=== PATIENT | male | born 1955 | race Two or more races ===

== ENCOUNTER 2020-04-07 14:58 | Inpatient (IN) | payer MEDICARE, OTHER ==
[~2020-04-07] VITALS: Ht 170.2 cm; Wt 109.3 kg
--- NOTE | 2020-04-07 15:20 | NUR ---
PT BIB FAMILY, PT HERE FOR BLE EDEMA. STATES, WAS AT DR STEAWRT AND WAS TOLD TO GO TO ED. PT DENIES CHEST PAIN AND SOB. 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 PLACED ON MONITOR. VSS. AWAITING MD MARIE.
[2020-04-07] MEDS ORDERED: METO-358 PO (15:26)
[2020-04-07] MEDS ORDERED: SPIR25TA6 PO (15:26)
[2020-04-07] MEDS ORDERED: SACU1TAB7 PO (15:26)
[2020-04-07] MEDS ORDERED: RIVA15TA PO (15:26)
[2020-04-07] MEDS ORDERED: AMIO200T4 PO (15:26)
[2020-04-07] MEDS ORDERED: CARB1TAB21 PO (15:26)
[2020-04-07] MEDS ORDERED: FURO40TA5 PO (15:26)
[2020-04-07] MEDS ORDERED: ATOR80TA PO (15:26)
[2020-04-07] MEDS ORDERED: TRAZ-252 PO (15:26)
--- NOTE | 2020-04-07 15:43 | NUR ---
DR GRANT AT BEDSIDE FOR EVAL.
--- NOTE | 2020-04-07 16:12 | NUR ---
IV LINE STARTERD BLOOD DRAWN AND SENT TO LAB.
--- NOTE | 2020-04-07 16:19 | NUR ---
U/S TECH AT BEDSIDE FOR BLE DUPLEX ULTRASOUND
[2020-04-07 16:36] LABS: BASOPHILS % (AUTO) 0.9 % (0.0-2.0); HEMATOCRIT 34 % (39-51); HEMOGLOBIN 11.5 g/dL (13.5-17.5); LYMPHOCYTES # (AUTO) 1.2 /CMM (0.8-4.8); LYMPHOCYTES % (AUTO) 22.8 % (20.0-44.0); MEAN CORPUSCULAR HGB CONC 34 g/dl (31.0-36.0); MEAN CORPUSCULAR VOLUME 96 fL (80-96); MONOCYTES # (AUTO) 0.6 /CMM (0.1-1.30); MONOCYTES % (AUTO) 12.1 % (2.0-12.0); NEUTROPHILS # (AUTO) 3.3 /CMM (1.8-8.9); NEUTROPHILS % (AUTO) 63.2 % (43.0-81.0); PLATELET COUNT (AUTO) 130 /CMM (150-450); RED BLOOD CELL COUNT(AUTO) 3.59 MIL/uL (4.5-6.0); WHITE BLOOD COUNT (AUTO) 5.2 K/uL (4.3-11.0)
[2020-04-07 16:58] LABS: CALCIUM, SERUM 8.9 mg/dL (8.5-10.1); CARBON DIOXIDE 27 mmol/L (21-32); CHLORIDE 105 mmol/L (98-107); CREATININE 1.8 mg/dL (0.6-1.3); GLUCOSE 91 mg/dL (74-106); POTASSIUM 3.9 mmol/L (3.5-5.1); SODIUM SERUM 140 mmol/L (136-145); UREA NITROGEN, BLOOD 24 mg/dL (7-18)
[2020-04-07 17:06] LABS: ALANINE AMINOTRANSFERASE 13 U/L (12-78); ALBUMIN 2.9 g/dL (3.4-5.0); ALKALINE PHOSPHATASE 73 U/L (46-116); ASPARTATE AMINOTRANSFERASE 25 U/L (15-37); B-TYPE NATRIURETIC PEPTIDE 1127 PG/ML (0-125); BILIRUBIN,DIRECT 0.3 mg/dL (0.0-0.2); BILIRUBIN,TOTAL 0.9 mg/dL (0.2-1.0)
--- NOTE | 2020-04-07 17:39 | NUR ---
DR SALTER PAGED THRU HIS CELL
--- NOTE | 2020-04-07 18:26 | NUR ---
CALLED DR SALTER. TO SPEAKING NOW
[2020-04-07] MEDS ORDERED: FUROSEMIDE 40 MG/4 ML VIAL IV ONE (18:30)
[2020-04-07] MEDS ORDERED: ASPIRIN 81 MG TAB.CHEW PO ONE (19:00)
--- NOTE | 2020-04-07 19:31 | NUR ---
CALL FROM LAB, RAPID COVID NEGATIVE.
--- NOTE | 2020-04-07 19:44 | NUR ---
TELE 103
--- NOTE | 2020-04-07 19:56 | NUR ---
URINE COLLECTED AND SENT TO THE LAB.
--- NOTE | 2020-04-07 20:06 | NUR ---
REPORT CALLED TO HEAD CORRECTION OFFICERHANANE RUBIO. WILL TRANSPORT PT VIA ACLS PROTOCOL.
--- NOTE | 2020-04-07 20:10 | NUR ---
RN OPENING NOTE PT ARRIVED TO THE FLOOR VIA GURNEY, PT IS A/A/O X4, ON ROOM AIR HAS UNLABORED BREATHING, DENIES SOB . SAFETY MEASURE IN PLACE BED AT LOWEST POSITION,LOCKED,CALL LIGHT IN REACH,SIDE RAILS UPX2, HOB ELEVATED.
--- NOTE | 2020-04-07 20:17 | NUR ---
PATIENT TAKEN UP TO ASSIGNED ROOM FOR AUDRA.
[2020-04-07 20:24] VITALS: BP 135/63
[2020-04-07] MEDS ORDERED: ATORVASTATIN 10 MG TABLET PO SCH (23:00)
[2020-04-07] MEDS ORDERED: TRAZODONE 50 MG TABLET PO SCH (23:00)
[2020-04-07 23:34] LABS: ABG BASE EXCESS 0.1 mmol/L; ABG OXYGEN SATURATION 93.7 % (92.0-98.5); ABG PCO2 35.7 mmHg (35.0-45.0); ABG PH 7.443 (7.350-7.450); ABG PO2 67.2 mmHg (75.0-100.0); AaDO2 39.8 mmHg; COHb 0.2 % (0.5-1.5); MetHb 0.1 % (0.0-1.5); O2Hb 93.4 % (94.0-97.0); SITE, ABG Right Radial; VENT MODE, BG room air
[2020-04-07] MEDS: TAMSULOSIN 0.4 MG CAP.SR.24H PO SCH (23:43)
[2020-04-07] MEDS: FUROSEMIDE 40 MG/4 ML VIAL IV SCH (23:44)
[2020-04-08] VITALS: BP 120/63
[2020-04-08 04:00] VITALS: BP 102/43
[2020-04-08] MEDS: FUROSEMIDE 40 MG/4 ML VIAL IV SCH ×3 (05:00→21:36)
--- NOTE | 2020-04-08 05:40 | NUR ---
RN NOTE LASIX NON ADMIN D/T LOW BP 94/52.
--- NOTE | 2020-04-08 07:21 | NUR ---
RN CLOSING NOTE PT REMAINED STABLE DURING MY SHIFT , NO ACUTE CHANGES. REPORT GIVEN TO INCOMING SHIFT FOR AUDRA.
[2020-04-08 08:00] VITALS: BP 95/49
--- NOTE | 2020-04-08 08:05 | NUR ---
DIGITAL LIBRARIAN OPENING NOTE: PATIENT ALERT AND ORIENTED X4. PATIENT CURRENTLY ON NC 2.5 L, OXYGEN SATURATION 98%. PATIENT PRESENTS WITH BLE +4. PATIENT HAS REDNESS IN THE ABDOMINAL FOLDS, AND LEG BLISTERS. STATED BY PREVIOUS SHIFT, LAST DOSE OF LASIX HELD DUE TO BP 94/52. WILL CONTINUE TO MONITOR CLOSELY. BED IN LOWEST LOCKED POSITION. CALL LIGHT WITHIN REACH.
[2020-04-08] MEDS ORDERED: FUROSEMIDE 40 MG TABLET PO SCH (09:00)
[2020-04-08] MEDS ORDERED: METOPROLOL SUCCINATE 50 MG TAB.SR.24H PO SCH ×2 (09:00→09:21)
[2020-04-08] MEDS ORDERED: CARBIDOPA/LEVA CR 25/100MG 1 TAB.SA PO SCH (09:00)
[2020-04-08] MEDS ORDERED: AMIODARONE HCL 200 MG TABLET PO SCH (09:00)
[2020-04-08] MEDS ORDERED: SPIRONOLACTONE 25 MG TABLET PO SCH (09:00)
--- NOTE | 2020-04-08 09:15 | NUR ---
PIPING ENGINEER - PHARMACY " DOLORESSTOksana " TALKED TO PHARMACY ABOUT ENTRESTO , WE DO NOT HAVE INSTOCK. THEY ASK TO TALK TO PATIENT TO BRING MEDICATION IN . I TLAKED TO PATIENT HE SAID HE WILL TALKED TO HIS FAMILY WHEN THEY CALL TO BRING IT .
[2020-04-08] MEDS: PANTOPRAZOLE 40 MG TABLET.DR PO SCH (09:23)
[2020-04-08] MEDS: SPIRONOLACTONE 25 MG TABLET PO SCH (09:23)
[2020-04-08] MEDS: AMIODARONE HCL 200 MG TABLET PO SCH (09:24)
[2020-04-08 09:43] LABS: BASOPHILS % (AUTO) 0.8 % (0.0-2.0); EOSINOPHILS % (AUTO) 1.3 % (0.0-6.0); HEMATOCRIT 31 % (39-51); HEMOGLOBIN 10.7 g/dL (13.5-17.5); LYMPHOCYTES # (AUTO) 1.2 /CMM (0.8-4.8); LYMPHOCYTES % (AUTO) 25.5 % (20.0-44.0); MEAN CORPUSCULAR HGB CONC 34 g/dl (31.0-36.0); MEAN CORPUSCULAR VOLUME 93 fL (80-96); MONOCYTES # (AUTO) 0.6 /CMM (0.1-1.30); MONOCYTES % (AUTO) 12.8 % (2.0-12.0); NEUTROPHILS # (AUTO) 2.7 /CMM (1.8-8.9); NEUTROPHILS % (AUTO) 59.6 % (43.0-81.0); PLATELET COUNT (AUTO) 118 /CMM (150-450); RED BLOOD CELL COUNT(AUTO) 3.38 MIL/uL (4.5-6.0); WHITE BLOOD COUNT (AUTO) 4.6 K/uL (4.3-11.0)
[2020-04-08 10:14] LABS: MAGNESIUM 1.9 mg/dL (1.8-2.4)
[2020-04-08 10:54] LABS: THYROID STIMULATING HORMONE 0.01 uIU/mL (0.358-3.74)
[2020-04-08 12:00] VITALS: BP 102/41
[2020-04-08] MEDS: CARBIDOPA/LEVODOPA 25/100 MG 1 UDTAB PO SCH ×2 (13:01→21:36)
[2020-04-08 13:02] LABS: MAGNESIUM 1.9 mg/dL (1.8-2.4); PHOSPHORUS 3.7 mg/dL (2.5-4.9)
[2020-04-08 13:22] LABS: ALBUMIN 2.8 g/dL (3.4-5.0); CALCIUM, SERUM 8.7 mg/dL (8.5-10.1); CREATININE 1.7 mg/dL (0.6-1.3); PHOSPHORUS 3.7 mg/dL (2.5-4.9); POTASSIUM 3.5 mmol/L (3.5-5.1); TOTAL PROTEIN, SERUM 6.1 g/dL (6.4-8.2)
[2020-04-08 16:00] VITALS: BP 98/52
[2020-04-08] MEDS ORDERED: RIVAROXABAN 15 MG TABLET PO SCH (17:00)
[2020-04-08] MEDS: RIVAROXABAN 15 MG TABLET PO SCH (17:03)
[2020-04-08 17:44] LABS: APPEARANCE,URINE CLEAR (CLEAR); BILIRUBIN,URINE NEGATIVE (NEGATIVE); BLOOD, URINE NEGATIVE Ery/uL (NEGATIVE); COLOR,URINE YELLOW (YELLOW); KETONES,URINE NEGATIVE (NEGATIVE); LEUKOCYTE ESTERASE ,URINE NEGATIVE (NEGATIVE); NITRITE, URINE NEGATIVE (NEGATIVE); PH,URINE 5.5 (5.0-8.0); PROTEIN,URINE NEGATIVE (NEGATIVE); UGLUCOSE NEGATIVE (NEGATIVE)
[2020-04-08 17:51] LABS: CREATININE, URINE 101.1 MG/DL (30.0-125.0); URINE TOTAL PROTEIN 9.4 mg/dL (0-11.9)
[2020-04-08 17:54] LABS: BACTERIA,URINE None seen /HPF (None Seen); RBC,URINE 0-2 /HPF (0-2); SQUAMOUS EPITHELIAL CELL,UR 0-2 /HPF (None Seen); WBC,URINE 0-2 /HPF (0-3)
[2020-04-08 18:34] LABS: EOSINOPHIL,URINE None Seen
--- NOTE | 2020-04-08 18:45 | NUR ---
EMERGENCY DETAIL DRIVER CLOSING NOTE: PT ALERT AND ORIENTED X4. PATIENT HAS NO FLUIDS RUNNING IN RFA 20 AT THIS TIME. FLUSHED AND PATENT AND SALINE LOCKED. PT ON RA AT 97% O2 SATURATION. PATIENT HAS BILATERAL LOWER EDEMA +2. PT ABLE TO USE URINAL AND STANDS WITH 1X ASSISTANCE. WALKED WITH PT USING WALKER. PT HAS REDNESS IN ABD FOLDS WITH LEG BLISTERS. SINUS V-PACING 60'S. PT ON CARDIAC DIET. BED IN LOCKED AND LOWEST POSITION. ALL SAFETY MEASURES IN PLACE.
--- NOTE | 2020-04-08 19:45 | NUR ---
PT RESTING IN BED A/O X 3 ON 2LPM VIA NC 02 SAT 98%. NO S/S OF PAIN OR DISTRESS.SAFETY MEASURES IN PLACE. WILL CONT TO MONITOR
[2020-04-08 20:00] VITALS: BP 111/55
[2020-04-08] MEDS: TAMSULOSIN 0.4 MG CAP.SR.24H PO SCH (21:36)
[2020-04-08] MEDS: TRAZODONE 50 MG TABLET PO SCH (21:36)
[2020-04-08] MEDS: ATORVASTATIN 40 MG TABLET PO SCH (21:37)
[2020-04-09] VITALS: BP 120/60
[2020-04-09 00:03] VITALS: BP 120/60
[2020-04-09 04:00] VITALS: BP 101/55
[2020-04-09] MEDS: FUROSEMIDE 40 MG/4 ML VIAL IV SCH ×3 (05:27→21:45)
--- NOTE | 2020-04-09 06:15 | NUR ---
Pt monitored accordingly, all needs attended and anticipated, kept clean, dry and comfortable, AM care rendered, 02 sat 98% r.a, lasix given as ordered. no s/s of distress. safety measures at all times. endorse poc.
--- NOTE | 2020-04-09 07:00 | NUR ---
SENIOR JAVA DEVELOPER 1 OPENING PATIENT ALERT AND ORIENTED X4 , AWAKE AND WATCHING TV. PATIENT ON ROOM AIR. PATIENT STATE HE DOES NOT HQVE TROUBLE BREATHING. AND HE IS COMFORTABLE WITHOUT THE N/C . BLE +2 WITH R LEG BLISTER. RFA 20# PATENT AND FLUSHED NO SIGNS OF INFILTRATION. BED LOCKED LOWEST POSITION CALL LIGHT WITH IN REACH ALL SAFETY MEASURES IMPLEMENTED PER HOSPITAL POLICY
[2020-04-09 07:15] LABS: BASOPHILS % (AUTO) 0.7 % (0.0-2.0); EOSINOPHILS % (AUTO) 1.5 % (0.0-6.0); HEMATOCRIT 34 % (39-51); HEMOGLOBIN 11.4 g/dL (13.5-17.5); LYMPHOCYTES # (AUTO) 1.2 /CMM (0.8-4.8); LYMPHOCYTES % (AUTO) 21.9 % (20.0-44.0); MEAN CORPUSCULAR HGB CONC 34 g/dl (31.0-36.0); MEAN CORPUSCULAR VOLUME 93 fL (80-96); MONOCYTES # (AUTO) 0.6 /CMM (0.1-1.30); MONOCYTES % (AUTO) 9.9 % (2.0-12.0); NEUTROPHILS # (AUTO) 3.7 /CMM (1.8-8.9); PLATELET COUNT (AUTO) 131 /CMM (150-450); RED BLOOD CELL COUNT(AUTO) 3.65 MIL/uL (4.5-6.0); WHITE BLOOD COUNT (AUTO) 5.7 K/uL (4.3-11.0)
[2020-04-09 08:00] VITALS: BP 117/48
[2020-04-09 08:35] LABS: ALBUMIN 2.8 g/dL (3.4-5.0); CALCIUM, SERUM 8.9 mg/dL (8.5-10.1); CREATININE 1.8 mg/dL (0.6-1.3); MAGNESIUM 1.9 mg/dL (1.8-2.4); PHOSPHORUS 3.6 mg/dL (2.5-4.9); POTASSIUM 3.1 mmol/L (3.5-5.1)
--- NOTE | 2020-04-09 08:42 | NUR ---
INCIDENT ANALYST - TALKED TO PHARMACY ABOUT MEDICATION THAT WE ARE NOT ABLE TO PROVIDE , TALKED TO PATIENT TO REMIND HIM THAT WE DO NOT CARRY IT , AND REQUESTED THAT HIS FAMILY BRING MEDICATION
[2020-04-09] MEDS ORDERED: VALSARTAN PO SCH (09:00)
[2020-04-09] MEDS ORDERED: SACUBITRIL PO SCH (09:00)
[2020-04-09] MEDS: PANTOPRAZOLE 40 MG TABLET.DR PO SCH (09:44)
[2020-04-09] MEDS: SPIRONOLACTONE 25 MG TABLET PO SCH (09:44)
[2020-04-09] MEDS: AMIODARONE HCL 200 MG TABLET PO SCH (09:44)
[2020-04-09] MEDS: CARBIDOPA/LEVODOPA 25/100 MG 1 UDTAB PO SCH ×3 (09:45→21:45)
[2020-04-09] MEDS: METOPROLOL SUCCINATE 50 MG TAB.SR.24H PO SCH (09:45)
--- NOTE | 2020-04-09 10:05 | NUR ---
SITE SUPERVISOR - REPORT GIVEN TO HANANE GRAJEDA
[2020-04-09] MEDS: POTASSIUM CHLORIDE 20 MEQ TAB.PRT.SR PO SCH ×3 (10:18→12:02)
--- NOTE | 2020-04-09 10:25 | NUR ---
ms rn note received patient from Pa andrews ,alert oriented x3 able to sit on chair, elevated both lower legs as tolerate no sob noted , on ra, saturation 100% rt fa hl intact, will cont to monitor ,call light with reach, plan of care dicussed with patient, bed in lowest and locked position
--- NOTE | 2020-04-09 11:40 | NUR ---
MS RN NOTE DR STEWART AT BEDSIDE AWARE THAT RT LEG WOUND WITH ORDER TO GET WOUND CX ,TAKEN ORDERED ,KEEP AREA CLEAN DRY AND OFF PRESSURE
[2020-04-09] MEDS: Magnesium 1GM/D5W 100ML PREMIX 100 ML IV SCH ×2 (11:58→12:57)
[2020-04-09] MEDS: METHIMAZOLE (5MG) 5 MG TABLET PO SCH (12:03)
[2020-04-09] MEDS: VANCOMYCIN HCL 1.25 GM in IV D5W 260 ML IV SCH (13:46)
[2020-04-09] MEDS ORDERED: SOD FERRIC GLUC 125 MG in IV NS 0.9% 100 ML IV SCH (14:00)
--- NOTE | 2020-04-09 14:00 | NUR ---
MS RN NOTE ALL NEEDS ATTENDED ,NOT IN DISTRESS
[2020-04-09] MEDS: ALBUMIN 25% 25 GM in PREMIX 1 EA IV SCH ×2 (15:26→21:46)
[2020-04-09 16:00] VITALS: BP 99/48
[2020-04-09] MEDS: RIVAROXABAN 15 MG TABLET PO SCH (16:32)
--- NOTE | 2020-04-09 17:34 | NUR ---
MS KOO NOTE ROUNDS MADE, HAVING DINNER , ABLE TO EAT SELF, WILL CONT TO MONITOR Addendum: 04/09/20 at 1843 by NICCI CARNES RN CALL LIGHT WITHIN REACH , ALL NEEDS ATTENDED, NOT IN DISTRESS, WILL CONT TO MONITOR
--- NOTE | 2020-04-09 19:15 | NUR ---
RN OPENING NOTE RECEIVED PT AWAKE IN BED. FULL CODE NOTED. MED SURG MONITORING IN PLACE. PT IS A/O X 4. NO S/S OF SOB OR RESP DISTRESS AT THIS TIME. EDEMA BLE NOTED. SLIGHT HAND TREMOR/SHAKING, HX OF PARKINSONS. PT CURRENTLY USES URINAL MINIMAL ASSISTANCE. RIGHT FA #22 FLUSHED. PT DENIES PAIN AT THIS TIME. BED IS LOCKED IN LOWEST POSITION BED ALARM ON. CALL LIGHT WITHIN REACH. WILL CONTINUE TO MONITOR.
[2020-04-09 20:00] VITALS: BP 115/62
[2020-04-09] MEDS: ATORVASTATIN 40 MG TABLET PO SCH (21:45)
[2020-04-09] MEDS: TRAZODONE 50 MG TABLET PO SCH ×2 (21:45→22:50)
[2020-04-09] MEDS: TAMSULOSIN 0.4 MG CAP.SR.24H PO SCH (21:46)
--- NOTE | 2020-04-09 22:18 | NUR ---
LOW BLOOD SUGAR OF 35. INFORMED DOCTOR, ADMINISTERED D50 IVP PER CASEY LAWRENCE. WILL REASSESS. Addendum: 04/09/20 at 2339 by ALVIN ODONNELL RN WRONG PATIENT
[2020-04-10] VITALS: BP 113/57
--- NOTE | 2020-04-10 00:45 | NUR ---
GAVE REPORT TO CAROLINE KOO FOR CONTINUATION OF CARE.
[2020-04-10 04:00] VITALS: BP 110/55
[2020-04-10] MEDS: ALBUMIN 25% 25 GM in PREMIX 1 EA IV SCH (05:01)
[2020-04-10 06:40] LABS: BASOPHILS % (AUTO) 0.4 % (0.0-2.0); EOSINOPHILS % (AUTO) 1.2 % (0.0-6.0); HEMATOCRIT 29 % (39-51); LYMPHOCYTES # (AUTO) 1.1 /CMM (0.8-4.8); LYMPHOCYTES % (AUTO) 22.7 % (20.0-44.0); MEAN CORPUSCULAR HGB CONC 34 g/dl (31.0-36.0); MEAN CORPUSCULAR VOLUME 92 fL (80-96); MONOCYTES # (AUTO) 0.6 /CMM (0.1-1.30); MONOCYTES % (AUTO) 11.9 % (2.0-12.0); NEUTROPHILS # (AUTO) 3.2 /CMM (1.8-8.9); NEUTROPHILS % (AUTO) 63.8 % (43.0-81.0); PLATELET COUNT (AUTO) 110 /CMM (150-450); RED BLOOD CELL COUNT(AUTO) 3.17 MIL/uL (4.5-6.0)
--- NOTE | 2020-04-10 06:43 | NUR ---
RN PM CLOSING NOTE PT IN BED WITH EYES CLOSED. MED SURG MONITORING IN PLACE. VS WNL THIS AM. ON RA. NO S/S OF SOB OR RESP DISTRESS AT THIS TIME. EDEMA BLE NOTED. PT CURRENTLY USES URINAL MINIMAL ASSISTANCE. BED IS LOCKED IN LOWEST POSITION BED ALARM ON. SR X2 CALL LIGHT WITHIN REACH.
[2020-04-10 07:07] LABS: CALCIUM, SERUM 9.2 mg/dL (8.5-10.1); CREATININE 1.8 mg/dL (0.6-1.3); POTASSIUM 3.6 mmol/L (3.5-5.1)
--- NOTE | 2020-04-10 07:30 | NUR ---
PT ASLEEP IN BED WITH HOB ELEVATED. RESPIRATIONS EVEN AND UNLABORED. A/OX4. EASILY WOKEN UP W VERBAL CUES. SKIN WARM AND FLUSHED. IV PATENT AND DRESSING INTACT IN RFA AND LFA. WILL MONITOR BP AND RESPONSE TO DIURESIS. WILL MONITOR BLISTER NOTED ON R LEG. WILL CONTINUE PLAN OF CARE TODAY ORDERED. BED LOW, LOCKED, CALL LIGHT IN REACH, HOB ELEVATED. RAILS UP X2, ALL HOSPITAL POLICY SAFETY PRECAUTIONS IMPLEMENTED.
[2020-04-10 08:00] VITALS: BP 120/57
[2020-04-10] MEDS: PANTOPRAZOLE 40 MG TABLET.DR PO SCH (08:10)
[2020-04-10] MEDS: AMIODARONE HCL 200 MG TABLET PO SCH (08:44)
[2020-04-10 08:45] VITALS: BP 120/57
[2020-04-10] MEDS: METOPROLOL SUCCINATE 50 MG TAB.SR.24H PO SCH (08:45)
[2020-04-10] MEDS: METHIMAZOLE (5MG) 5 MG TABLET PO SCH (08:45)
[2020-04-10] MEDS: CARBIDOPA/LEVODOPA 25/100 MG 1 UDTAB PO SCH ×2 (08:45→12:31)
[2020-04-10] MEDS: SPIRONOLACTONE 25 MG TABLET PO SCH (08:45)
[2020-04-10] MEDS ORDERED: SPIR25TA6 PO (09:30)
[2020-04-10] MEDS ORDERED: TRAZ-252 PO (09:30)
[2020-04-10] MEDS ORDERED: TAMS-12 PO (09:30)
[2020-04-10] MEDS ORDERED: METH5TAB70 PO (09:30)
[2020-04-10] MEDS ORDERED: PANT40TA2 PO (09:30)
[2020-04-10] MEDS ORDERED: RIVA15TA PO (09:30)
[2020-04-10] MEDS ORDERED: AMIO200T7 PO (09:30)
[2020-04-10] MEDS ORDERED: CARB1TAB21 PO (09:30)
[2020-04-10] MEDS ORDERED: METO50TA7 PO (09:30)
[2020-04-10] MEDS ORDERED: ATOR40TA PO (09:30)
--- NOTE | 2020-04-10 10:00 | NUR ---
Patient discharge to home, MD requested give Vancomycin and SW consult who provided information for behavioral and mental health.
[2020-04-10 11:07] LABS: PTH, INTACT 46 pg/mL (15-65)
--- NOTE | 2020-04-10 11:59 | NUR ---
Supervisor Sign Shop consult requested by patient's HANANE Payne. Patient is a 65 year old male. Patient was receptive to speaking with this SW. Per patient, patient confirmed address and stated that he lives in this home with his Esther and her Caregiver Mary Lou. Per patient, he states that his receives government assitance for this caregiver, based on description this SW believes it is In-Home Support Services. Per patient, he has been sick for a long time. "You can say I am retired, I have been sick for a long time and have not been able to work." Patient reports receiving Social Security Income, per patient states that he receives approximately $940 "I may be off like $20-30 but its about that amount." Per patient, he was brought to [facility] ER by his nephew Ignacio. Per patient, he had a hard time walking because of his swollen feet. Patient reports he is tired and weak some of the time. Per patient, he has been diagnosed with schizophrenia, is currently on medications but has not seen his psyhciatrist in some time. Per patient, he has not gone to see his psychiatrist because she does not take patient's insurance. Per patient, "I have to save money so I can pay her quinn." Patient reports seeing visual hallucinations of "dogs, cats and people." Per the patient, none of these figures are recognizable to him from his every day life. 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 Patient also reports that he has a pacemaker. Patient denies suicidal and homicidal ideation. SW to provide patient with out-patient mental health resources via [facility] fax . SW to speak to patient's HANANE Payne to provide update after this SW assessment.
--- NOTE | 2020-04-10 12:22 | NUR ---
This SW spoke to patient's RN Kerry. SW provided small overview of this SW assessment. This SW also informed Kerry that this SW had faxed over mental health resources for the patient. Patient did state that he has not seen his psychiatrist "in a while". SW informed the patient that his nurse would provide this information for to the patient. SW to remain available for all needs regarding this patient.
[2020-04-10] MEDS: VANCOMYCIN HCL 1.25 GM in IV D5W 260 ML IV SCH (12:37)
--- NOTE | 2020-04-10 12:40 | NUR ---
spoke with patient, he is aware of his discharge home today. Family- Ignacio will provide ride. Patient states he does not have homehealth but has [facility] caregiver that provide assistance. Denies any dc planning needs. Patient pcp is Dr. Godoy, he want to set up his own f/u appt. Addendum: 04/10/20 at 1241 by ALONSO FUENTES RN Amended: Links added.
--- NOTE | 2020-04-10 14:40 | NUR ---
Patient discharge to home, requested give Vancomycin and SW consult who provided information for behavioral and mental health. Given information to patient before leave. Patient refused flue shot.
--- NOTE | 2020-04-10 15:29 | NUR ---
PT DISCHARGED HOME. TAKEN TO SON VIA WHEELCHAIR. LEFT IN PERSONAL VEHICLE. PT BROUGHT ALL BELONGINGS AND DC INSTRUCTIONS HOME. PT DENIED QUESTIONS OR CONCERNS. Addendum: 04/10/20 at 1537 by BEN BENITEZ RN IVS REMOVED AND COVERED WITH BANDAGES. TOLERATED WELL.
[2020-04-12 06:09] LABS: *SPE A/G RATIO 0.8 (0.7-1.7); *SPE ALBUMIN 2.8 g/dL (2.9-4.4); *SPE ALPHA-1-GLOBULIN 0.3 g/dL (0.0-0.4); *SPE ALPHA-2-GLOBULIN 0.8 g/dL (0.4-1.0); *SPE BETA GLOBULIN 0.9 g/dL (0.7-1.3); *SPE GLOBULIN, TOTAL 3.3 g/dL (2.2-3.9); *SPE M-SPIKE Not Observed g/dL (Not Observed); *SPEGAMMA GLOBULIN 1.3 g/dL (0.4-1.8)
== END 2020-04-10 15:22 | disposition home or self-care (01) | DRG 291 ==
LOC: ER 15:04 → TELE1 19:58 → MEDSG1 04-09 07:59
PROVIDERS: ADMIT Family Medicine; ATTEND Family Medicine
DX: I13.0 Hypertensive heart and chronic kidney disease with heart failure and stage 1 through stage 4 chronic kidney disease, or unspecified chronic kidney disease (principal); N17.0 Acute kidney failure with tubular necrosis; I50.41 Acute combined systolic (congestive) and diastolic (congestive) heart failure; L03.115 Cellulitis of right lower limb; Q61.3 Polycystic kidney, unspecified; K57.92 Diverticulitis of intestine, part unspecified, without perforation or abscess without bleeding; E24.9 Cushing's syndrome, unspecified; E46 Unspecified protein-calorie malnutrition; D63.1 Anemia in chronic kidney disease; Z95.0 Presence of cardiac pacemaker; I25.5 Ischemic cardiomyopathy; Z79.899 Other long term (current) drug therapy; Z86.73 Personal history of transient ischemic attack (TIA), and cerebral infarction without residual deficits; G20 Parkinson's disease; F02.80 Dementia in other diseases classified elsewhere, unspecified severity, without behavioral disturbance, psychotic disturbance, mood disturbance, and anxiety; H26.9 Unspecified cataract; H35.30 Unspecified macular degeneration; J32.9 Chronic sinusitis, unspecified; R42 Dizziness and giddiness; I25.10 Atherosclerotic heart disease of native coronary artery without angina pectoris; E78.5 Hyperlipidemia, unspecified; I27.20 Pulmonary hypertension, unspecified; Z98.61 Coronary angioplasty status; J44.9 Chronic obstructive pulmonary disease, unspecified; N40.0 Benign prostatic hyperplasia without lower urinary tract symptoms; K21.9 Gastro-esophageal reflux disease without esophagitis; K59.00 Constipation, unspecified; K20.90 Esophagitis, unspecified without bleeding; N52.9 Male erectile dysfunction, unspecified; M19.90 Unspecified osteoarthritis, unspecified site; G89.29 Other chronic pain; M81.0 Age-related osteoporosis without current pathological fracture; D50.9 Iron deficiency anemia, unspecified; E53.8 Deficiency of other specified B group vitamins; F41.9 Anxiety disorder, unspecified; F32.9 Major depressive disorder, single episode, unspecified; Z98.890 Other specified postprocedural states; Z87.891 Personal history of nicotine dependence; D63.8 Anemia in other chronic diseases classified elsewhere; G47.33 Obstructive sleep apnea (adult) (pediatric); I48.91 Unspecified atrial fibrillation; E87.6 Hypokalemia; E05.90 Thyrotoxicosis, unspecified without thyrotoxic crisis or storm; R41.3 Other amnesia; N13.9 Obstructive and reflux uropathy, unspecified; I95.9 Hypotension, unspecified; R09.02 Hypoxemia; R06.89 Other abnormalities of breathing; E66.01 Morbid (severe) obesity due to excess calories; Z68.37 Body mass index [BMI] 37.0-37.9, adult
CPT/HCPCS: 36415; 36600; 71045-TC; 73590-TC; 73650-TC; 76536-TC; 76770-TC; 80048-TC; 80053-TC; 80076-TC; 81000-TC; 82550-TC; 82570-TC; 82728-TC; 82803-TC; 83540-TC; 83735-TC; 83880; 83970; 84100-TC; 84155; 84155-TC; 84165; 84300-TC; 84439-TC; 84443-TC; 84484-TC; 85025-TC; 85730-TC; 87070-TC; 87081-TC; 93307-TC; 93970-TC; 97116-TC; 97530-TC; A4216; C9803-CS; G0378; J1940; J2916; J3475; J7030; J7050; J7060; P9047